=== PATIENT | female | born 2005 | race Caucasian/White ===

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

== ENCOUNTER 2024-11-15 08:18 | Emergency (ER) | payer MEDICAID, OTHER ==
[~2024-11-15] VITALS: Ht 165.1 cm; Wt 59.1 kg
[~2024-11-15 08:18] MED LIST: ESCI-8 PO
[2024-11-15 08:47] VITALS: TEMP 98.7
[2024-11-15 09:04] LABS: COVID AG,FIA SOURCE NASAL SWAB
[2024-11-15 09:52] LABS: SARS-COV2 (COVID) ANTIGEN,FIA Negative (Negative)
[2024-11-15 09:59] LABS: INFLUENZA TYPE B NEGATIVE FOR TYPE B (NEGATIVE)
[2024-11-15 10:17] LABS: INFLUENZA TYPE A POSITIVE FOR TYPE A (NEGATIVE)
[2024-11-15] MEDS: ALBUTEROL SULFATE 2.5 MG/0.5 ML NEB SOLUTION NEB ONE (10:21)
[2024-11-15 10:23] VITALS: PULSE 80; RESP 16; O2SAT 98
[2024-11-15 10:24] VITALS: PULSE 80; RESP 16; O2SAT 98
[2024-11-15 10:30] VITALS: BP 116/69; PULSE 89; RESP 17; O2SAT 100
[2024-11-15] MEDS ORDERED: ALBU18HF12 IH (10:48)
== END 2024-11-15 11:01 | disposition home or self-care (01) ==
LOC: EMS 08:22
DX: J10.1 Influenza due to other identified influenza virus with other respiratory manifestations (principal); J40 Bronchitis, not specified as acute or chronic; B97.89 Other viral agents as the cause of diseases classified elsewhere; R04.2 Hemoptysis; F41.9 Anxiety disorder, unspecified; Z79.899 Other long term (current) drug therapy; Z20.822 Contact with and (suspected) exposure to COVID-19
CPT/HCPCS: 87804; 94640; 99283